=== PATIENT | female | born 1970 | race Two or more races ===

== ENCOUNTER 2024-08-09 05:43 | Day surgery (SDC) | payer OTHER ==
[2024-08-09] MEDS ORDERED: DIPHENHYDRAMINE HCL 50 MG/ML VIAL 1ML IV ONE (10:15)
[2024-08-09] MEDS ORDERED: fentaNYL CITRATE 50 MCG/ML AMPUL IV PUSH ONE (10:15)
[2024-08-09] MEDS ORDERED: MIDAZOLAM HCL 2 MG/2 ML VIAL IV ONE (10:15)
== END 2024-08-09 11:45 | disposition home or self-care (01) ==
LOC: AMB-ENDOS 05:43
PROVIDERS: ATTEND Colon & Rectal Surgery
DX: C20 Malignant neoplasm of rectum (principal)